=== PATIENT | female | born 1990 | race African-American/Black ===

== ENCOUNTER 2019-06-13 13:23 | Emergency (ER) | payer MEDICAID ==
[~2019-06-13] VITALS: Ht 160 cm; Wt 64.0 kg
[2019-06-13 13:38] VITALS: BP 110/73; Ht 160 cm; Wt 64.0 kg
[2019-06-13 15:17] LABS: BASOPHIL % 0.6 % (0-2); PLATELET COUNT 217 x10^3mcL (130-400)
[2019-06-13 15:22] LABS: RED CELL DISTRIBUTION WIDTH 15.8 % (11.5-14.5)
[2019-06-13 15:27] LABS: CALCIUM 8.7 mg/dL (8.5-10.1); CARBON DIOXIDE 29.4 mmol/L (21-32); CHLORIDE SERUM 107 mmol/L (98-107); CREATININE SERUM 0.6 mg/dL (0.6-1.0); GFR1 > 60 mL/min; GLUCOSE SERUM 84 mg/dL (74-106); SODIUM SERUM 140 mmol/L (136-145)
[2019-06-13 15:32] LABS: ALBUMIN 3.6 g/dL (3.4-5.0); ALKALINE PHOSPHATASE 58 U/L (46-116); ALT/SGPT 15 U/L (14-59); AST/SGOT 13 U/L (15-37); BILIRUBIN TOTAL 0.28 mg/dL (0.20-1.00); LIPASE 74 IU/L (73-393); TOTAL PROTEIN, SERUM 7.1 g/dL (6.4-8.2)
[2019-06-13 15:52] LABS: microscopic required? NO
[2019-06-13 16:04] LABS: UA SPECIFIC GRAVITY 1.015 (1.005-1.035); urine erythrocyte NEGATIVE (NEGATIVE)
== END 2019-06-13 17:00 | disposition home or self-care (01) ==
LOC: ED 13:23
PROVIDERS: Emergency Medicine
DX: R10.30 Lower abdominal pain, unspecified (principal); D64.9 Anemia, unspecified; L29.9 Pruritus, unspecified
CPT/HCPCS: 36415; 87491; 87591